=== PATIENT | male | born 1970 | race Caucasian/White ===

== ENCOUNTER 2021-07-30 15:21 | Emergency (ER) | payer MEDICARE, OTHER ==
[~2021-07-30] VITALS: Ht 185.4 cm; Wt 125.2 kg
[2021-07-30] MEDS ORDERED: ATOR40TA PO (15:53)
[2021-07-30] MEDS ORDERED: PROCTO MED TOP (15:53)
[2021-07-30] MEDS ORDERED: TRIA80OI TP (15:53)
[2021-07-30] MEDS ORDERED: OMEP20TA20 PO (15:53)
[2021-07-30] MEDS ORDERED: HYDR25TA4 PO (15:53)
[2021-07-30] MEDS ORDERED: MUPI22OI2 TP (15:53)
[2021-07-30] MEDS ORDERED: BENA40TA8 PO (15:53)
[2021-07-30] MEDS ORDERED: DULA1.5P SQ (15:53)
[2021-07-30] MEDS ORDERED: BUDE10.2 INH (15:53)
--- NOTE | 2021-07-30 18:05 | NUR ---
CALLED [facility], ETA 60-90 MINUTES.
--- NOTE | 2021-07-30 18:52 | NUR ---
AMBULANCE AT BEDSIDE. Patient discharged to home in stable condition. Written and verbal after care instructions given. Patient verbalizes understanding of instructions. Stressed follow up or return to ER for worsening s/s.
[2021-07-30 18:56] VITALS: BP 144/69
== END 2021-07-30 18:59 ==
LOC: ER 15:21
DX: M21.332 Wrist drop, left wrist (principal); Z89.512 Acquired absence of left leg below knee; E11.9 Type 2 diabetes mellitus without complications; Z79.899 Other long term (current) drug therapy; R03.0 Elevated blood-pressure reading, without diagnosis of hypertension
CPT/HCPCS: 72125; A4663